=== PATIENT | female | born 1940 | race Caucasian/White ===

== ENCOUNTER → 2017-08-22 | Outpatient (CLI) | payer MEDICARE, BC ==
[~2017-08-22] MED LIST: ACET120S; CALCA500CH; ERGO50000 PO; Hair, Skin & N1 EACH; IBUP100S; Papaya Enzyme1 EAC1; Zofran8 MG PO
[2017-08-24 13:08] LABS: Stool Occult Bld Immuno 1 Negative (NEGATIVE)
== END | disposition home or self-care (01) ==
LOC: LAB SHORT 08:00 → LAB EV 08:00
PROVIDERS: Internal Medicine
DX: Z12.11 Encounter for screening for malignant neoplasm of colon (principal)
CPT/HCPCS: G0328

== ENCOUNTER → 2017-10-03 | Outpatient (CLI) | payer MEDICARE, BC | END | disposition home or self-care (01) | LOC: LAB SHORT 14:14 → PLD 14:14 | DX: N95.0 Postmenopausal bleeding (principal) | CPT/HCPCS: 88305 ==

== ENCOUNTER 2019-05-12 07:41 | Day surgery (SDC) | payer MEDICARE, BC ==
[~2019-05-12] VITALS: Ht 160 cm; Wt 59.4 kg
[2019-05-12] MEDS ORDERED: Zantac150 MG (08:29)
== END 2019-05-12 09:50 | disposition home or self-care (01) ==
LOC: ORSCSDS 07:41
PROVIDERS: Internal Medicine Gastroenterology
PROC: 0DBH8ZX Excision of Cecum, Via Natural or Artificial Opening Endoscopic, Diagnostic (ICD-10-PCS; principal; 2019-05-12 09:00)
DX: Z12.11 Encounter for screening for malignant neoplasm of colon (principal); Z86.010 Personal history of colon polyps; D12.0 Benign neoplasm of cecum; K57.30 Diverticulosis of large intestine without perforation or abscess without bleeding; E78.5 Hyperlipidemia, unspecified; E78.00 Pure hypercholesterolemia, unspecified; Z79.899 Other long term (current) drug therapy
CPT/HCPCS: 88305; J0330; J0461; J2001; J2405; J2704; J7120

== ENCOUNTER → 2021-07-03 | Outpatient (CLI) | payer MEDICARE, BC ==
[~2021-07-03] MED LIST changes: +Zantac150 MG
== END | disposition home or self-care (01) ==
LOC: LAB 11:08 → LAB SHORT 11:08
DX: D18.01 Hemangioma of skin and subcutaneous tissue (principal)
CPT/HCPCS: 88305

== ENCOUNTER 2022-11-16 15:15 | Inpatient (IN) | payer OTHER, MEDICARE, BC ==
[~2022-11-16] VITALS: Ht 160 cm; Wt 61.7 kg
[2022-11-16 16:26] LABS: BASOPHILS ABSOLUTE AUTO 0.03 K/mm3 (0.00-0.23); BASOPHILS PERCENT AUTO 0 % (0-2); EOSINOPHILS ABSOLUTE AUTO 0.03 K/mm3 (0.00-0.68); EOSINOPHILS PERCENT AUTO 0 % (0-6); Hematocrit 37.1 % (33.0-51.0); Hemoglobin 12.8 g/dL (11.5-16.0); IMMATURE GRAN ABSOLUTE AUTO 0.06 K/mm3 (0.00-0.10); IMMATURE GRAN PERCENT AUTO 1 % (0-1); LYMPHOCYTES ABSOLUTE AUTO 0.85 K/mm3 (0.84-5.20); LYMPHOCYTES PERCENT AUTO 10 % (21-46); MONOCYTES ABSOLUTE AUTO 0.64 K/mm3 (0.16-1.47); MONOCYTES PERCENT AUTO 8 % (4-13); Mean Corpuscular HGB 30.9 pg (26.0-34.0); Mean Corpuscular HGB Conc 34.5 g/dL (31.5-36.5); Mean Corpuscular Volume 90 fL (80-100); Mean Platelet Volume 9.8 fL (9.1-12.4); NEUTROPHILS ABSOLUTE AUTO 6.65 K/mm3 (1.96-9.15); NEUTROPHILS PERCENT AUTO 81 % (41-73); Platelet Count 177 K/mm3 (150-400); RDW Coefficient Variation 12.1 % (11.7-14.2); RDW Standard Deviation 39.7 fL (35.1-46.3); Red Blood Cell Count 4.14 M/mm3 (3.80-5.20); White Blood Cell Count 8.26 K/mm3 (4.00-11.30)
[2022-11-16 16:41] LABS: Albumin, Blood 3.6 g/dL (3.4-5.0); Bilirubin, Total 0.3 mg/dL (0.1-1.0); Bun/Creatinine Ratio 25.3 (12.0-20.0); Calcium, Blood 8.7 mg/dL (8.5-10.1); Creatinine, Blood 0.75 mg/dL (0.40-1.00); Globulin, Blood 3.5 g/dL (2.2-4.0); Potassium, Blood 3.9 mmol/L (3.5-5.5); Total Protein, Blood 7.1 g/dL (6.4-8.2)
[2022-11-16] MEDS ORDERED: ASPI81CH PO (21:28)
[2022-11-16] MEDS ORDERED: LOSA25 PO (21:28)
[2022-11-16] MEDS ORDERED: Calcium Carbon500 MG PO (21:29)
[2022-11-16] MEDS ORDERED: OMEP20ER PO (21:32)
[2022-11-16] MEDS ORDERED: LORA10ER PO (21:32)
--- NOTE | 2022-11-16 22:27 | NUR ---
ARRIVAL PT NEW ADMIT FROM ER. ARRIVED IN NO DISTRESS. PT A/OX4, VSS. ORIENTED TO ROOM AND CALL LIGHT GIVEN. PT C/O STERNAL PAIN, BUT NO DIFFICULTY BREATHING. PLAN TO MEDICATE FOR PAIN AND EDUCATE ABOUT DEEP BREATHING.
[2022-11-17 03:45] LABS: BASOPHILS ABSOLUTE AUTO 0.02 K/mm3 (0.00-0.23); BASOPHILS PERCENT AUTO 0 % (0-2); EOSINOPHILS ABSOLUTE AUTO 0.01 K/mm3 (0.00-0.68); EOSINOPHILS PERCENT AUTO 0 % (0-6); Hematocrit 34.8 % (33.0-51.0); Hemoglobin 12.1 g/dL (11.5-16.0); IMMATURE GRAN ABSOLUTE AUTO 0.01 K/mm3 (0.00-0.10); IMMATURE GRAN PERCENT AUTO 0 % (0-1); LYMPHOCYTES ABSOLUTE AUTO 1.02 K/mm3 (0.84-5.20); LYMPHOCYTES PERCENT AUTO 18 % (21-46); MONOCYTES ABSOLUTE AUTO 0.58 K/mm3 (0.16-1.47); MONOCYTES PERCENT AUTO 10 % (4-13); Mean Corpuscular HGB Conc 34.8 g/dL (31.5-36.5); Mean Corpuscular Volume 89 fL (80-100); Mean Platelet Volume 9.8 fL (9.1-12.4); NEUTROPHILS ABSOLUTE AUTO 4.18 K/mm3 (1.96-9.15); NEUTROPHILS PERCENT AUTO 72 % (41-73); Platelet Count 181 K/mm3 (150-400); RDW Coefficient Variation 12.2 % (11.7-14.2); RDW Standard Deviation 39.7 fL (35.1-46.3); White Blood Cell Count 5.82 K/mm3 (4.00-11.30)
--- NOTE | 2022-11-17 04:20 | NUR ---
VSS. PT SLEPT WELL T/O THE NIGHT. MEDICATED FOR PAIN ONCE WITH TORADOL, PT REMAINS APREHENSIVE ABOUT NARCOTICS. TOLLERATING PO INTAKE W/O N/V. AMBULATING TO BATHROOM SBA, VOIDING W/O DIFFICULTY. NO ACUTE EVENTS NOTED. AWITING PT TO AWAKE FOR I.S EDUCATION. PLAN FOR PT TO BE CLEARED TODAY AND POSSIBLY D/C. THE PATIENT IS CURRENTLY RESTING, IN NO DISTRESS, CALL LIGHT IN REACH
[2022-11-17 04:31] LABS: Bun/Creatinine Ratio 29.6 (12.0-20.0); Calcium, Blood 9.1 mg/dL (8.5-10.1); Creatinine, Blood 0.71 mg/dL (0.40-1.00); Potassium, Blood 4.1 mmol/L (3.5-5.5)
[2022-11-17] MEDS ORDERED: ACET500 PO (13:08)
--- NOTE | 2022-11-17 13:57 | NUR ---
DISCHARGE PT AMBULATING WELL IN ROOM, PAIN CONTROLLED PER EMAR. PT TAKING DEEP BREATHS, TOOK INCENTIVE SPIROMETER HOME WITH HER. VOIDING WELL, TOLERATING PO WELL. NO NEW BRUISING NOTED. ALL INSTRUCTIONS GONE OVER WITH PATIENT AND SON. IV REMOVED WNL.
== END 2022-11-17 13:59 | disposition home or self-care (01) | DRG 206 ==
LOC: ER 15:15 → SURS 19:49
PROVIDERS: Emergency Medicine; ADMIT Surgery
DX: S22.31XA Fracture of one rib, right side, initial encounter for closed fracture (principal); S22.21XA Fracture of manubrium, initial encounter for closed fracture; S22.32XA Fracture of one rib, left side, initial encounter for closed fracture; I10 Essential (primary) hypertension; K21.9 Gastro-esophageal reflux disease without esophagitis; S10.83XA Contusion of other specified part of neck, initial encounter; V49.40XA Driver injured in collision with unspecified motor vehicles in traffic accident, initial encounter; Z90.49 Acquired absence of other specified parts of digestive tract; Z88.2 Allergy status to sulfonamides; Z88.8 Allergy status to other drugs, medicaments and biological substances; Z88.1 Allergy status to other antibiotic agents; Z79.82 Long term (current) use of aspirin; Z79.899 Other long term (current) drug therapy; Z98.890 Other specified postprocedural states
CPT/HCPCS: 36415; 71046; 71260; 74177; 80048; 80053; 85025; 93005; 93010; 93306; 93880; 94762; 97110; 97161; 97530; 99285-25; A9270; J1885; J3010; Q9967

== ENCOUNTER 2023-01-18 11:59 | Emergency (ER) | payer MEDICARE, BC ==
[~2023-01-18] VITALS: Ht 160 cm; Wt 62.6 kg
[~2023-01-18 11:59] MED LIST changes: +ACET500 PO; +ASPI81CH PO; +Calcium Carbon500 MG PO; +LORA10ER PO; +LOSA25 PO; +OMEP20ER PO
[2023-01-18 14:45] LABS: BASOPHILS ABSOLUTE AUTO 0.01 K/mm3 (0.00-0.23); BASOPHILS PERCENT AUTO 0 % (0-2); EOSINOPHILS PERCENT AUTO 0 % (0-6); Hematocrit 36.2 % (33.0-51.0); Hemoglobin 12.4 g/dL (11.5-16.0); IMMATURE GRAN ABSOLUTE AUTO 0.01 K/mm3 (0.00-0.10); IMMATURE GRAN PERCENT AUTO 0 % (0-1); LYMPHOCYTES ABSOLUTE AUTO 0.35 K/mm3 (0.84-5.20); LYMPHOCYTES PERCENT AUTO 9 % (21-46); MONOCYTES ABSOLUTE AUTO 0.43 K/mm3 (0.16-1.47); MONOCYTES PERCENT AUTO 11 % (4-13); Mean Corpuscular HGB 31.2 pg (26.0-34.0); Mean Corpuscular HGB Conc 34.3 g/dL (31.5-36.5); Mean Corpuscular Volume 91 fL (80-100); Mean Platelet Volume 9.8 fL (9.1-12.4); NEUTROPHILS ABSOLUTE AUTO 3.25 K/mm3 (1.96-9.15); NEUTROPHILS PERCENT AUTO 80 % (41-73); Platelet Count 176 K/mm3 (150-400); RDW Coefficient Variation 12.2 % (11.7-14.2); Red Blood Cell Count 3.97 M/mm3 (3.80-5.20); White Blood Cell Count 4.05 K/mm3 (4.00-11.30)
[2023-01-18 14:56] LABS: Albumin, Blood 3.6 g/dL (3.4-5.0); Bilirubin, Total 0.3 mg/dL (0.1-1.0); Bun/Creatinine Ratio 33.1 (12.0-20.0); Creatinine, Blood 0.67 mg/dL (0.40-1.00); Globulin, Blood 3.6 g/dL (2.2-4.0); Potassium, Blood 3.1 mmol/L (3.5-5.5); Total Protein, Blood 7.2 g/dL (6.4-8.2)
[2023-01-18 15:14] LABS: Source, Urine Clean Catch
[2023-01-18 15:27] LABS: Bilirubin, Urine Neg (Neg); Blood, Urine Neg (Neg); Glucose Qualitative, Urine Neg (Neg); Ketones, Urine 1+ (Neg); Leukocyte Esterase, Urine Neg (Neg); Nitrite, Urine Neg (Neg); Protein, Urine 1+ (Neg); Specific Gravity, Urine 1.015 (1.003-1.022); Urobilinogen, Urine NORM (Normal)
[2023-01-18 15:28] LABS: Appearance, Urine Clear (Clear); Color, Urine Pale Yellow (P-Yellow)
[2023-01-18] MEDS ORDERED: ERGO400 PO (19:14)
[2023-01-18] MEDS ORDERED: ONDA4ODT (19:15)
[2023-01-18] MEDS ORDERED: PANTOPRAZOLE SO40 M2 PO (19:15)
[2023-01-18] MEDS ORDERED: LOSARTAN POTASS25 M2 PO (19:15)
[2023-01-18] MEDS ORDERED: Lisinopril2.5 MG PO (19:16)
[2023-01-18 19:42] LABS: Adenovirus F 40/41 Not Detected (NOT DETECT); Astrovirus Not Detected (NOT DETECT); Campylobacter Sp Not Detected (NOT DETECT); Cryptosporidium Not Detected (NOT DETECT); Cyclospora Cayetanensis Not Detected (NOT DETECT); E. Coli O157 Not Detected (NOT DETECT); Entamoeba Histolytica Not Detected (NOT DETECT); Enteroaggregative E. coli-EAEC Not Detected (NOT DETECT); Enteropathogenic E. coli-EPEC Not Detected (NOT DETECT); Enterotoxigenic E. coli-ETEC Not Detected (NOT DETECT); Giardia Lamblia Not Detected (NOT DETECT); Norovirus GI/GII Not Detected (NOT DETECT); Plesiomonas Shigelloides Not Detected (NOT DETECT); Rotavirus A Detected (NOT DETECT); Salmonella Sp Not Detected (NOT DETECT); Sapovirus Not Detected (NOT DETECT); Shiga Toxin-prod E. coli-STEC Not Detected (NOT DETECT); Shigella/Enteroin E. coli-EIEC Not Detected (NOT DETECT); Vibrio Cholerae Not Detected (NOT DETECT); Vibrio Sp Not Detected (NOT DETECT); Yersinia Enterocolitica Not Detected (NOT DETECT)
[2023-01-18 19:45] VITALS: BP 108/61
[2023-01-18] MEDS ORDERED: ONDA4ODT MM (20:02)
[2023-01-18] MEDS ORDERED: LOPE2C PO (20:02)
== END 2023-01-18 20:55 | disposition home or self-care (01) ==
LOC: ER 11:59
PROVIDERS: Physician Assistant; Student in an Organized Health Care Education/Training Program
DX: A08.0 Rotaviral enteritis (principal); E87.6 Hypokalemia; I10 Essential (primary) hypertension; Z88.2 Allergy status to sulfonamides; Z88.1 Allergy status to other antibiotic agents; Z88.6 Allergy status to analgesic agent; Z79.82 Long term (current) use of aspirin; Z79.899 Other long term (current) drug therapy
CPT/HCPCS: 36415; 80053; 83690; 85025; 87507; A9270; J2405; J7030